=== PATIENT | male | born 1945 | race Asian ===

== ENCOUNTER 2018-11-23 06:47 | Day surgery (SDC) | payer OTHER ==
[~2018-11-23] VITALS: Ht 162.6 cm; Wt 60.9 kg
[~2018-11-23 06:47] MED LIST: ALBU8.5H3 IH; D-ME118S51 PO; MOME13HF IH; MONT10TA21 PO; OMEP20 PO; P-EP-31 PO; PRED10TA3 PO; SODIUM CHLORIDE 0.9% 1,000 ML IV ONE
[2018-11-23] MEDS ORDERED: BENZOCAINE 20% 50 MCG/SPRAY 57 GM TP ONE (06:48)
[2018-11-23] MEDS ORDERED: LIDOCAINE 2% 30 ML JELLY TP ONE (06:48)
[2018-11-23] MEDS ORDERED: ALBUTEROL SULFATE 2.5 MG/0.5 ML NEB SOLUTION NEB ONE (06:48)
[2018-11-23] MEDS ORDERED: FAMO20 PO (07:10)
[2018-11-23] MEDS ORDERED: POTA15TA11 PO (07:10)
[2018-11-23] MEDS ORDERED: MIDAZOLAM HCL 2 MG/2 ML VIAL ONE (07:38)
[2018-11-23] MEDS ORDERED: FentaNYL CITRATE-PF 100 MCG/2 ML VIAL ONE (07:38)
[2018-11-23] MEDS ORDERED: MethylPREDNISolone SOD SUCC 125 MG/2 ML VIAL IVP ONE (09:45)
[2018-11-23] MEDS ORDERED: MethylPREDNISolone SOD SUCC 125 MG/2 ML VIAL ONE (09:54)
[2018-11-23] MEDS ORDERED: OXYGEN THERAPY IH SCH (20:00)
== END 2018-11-23 11:20 | disposition home or self-care (01) ==
LOC: SURGERY 06:47
PROVIDERS: ATTEND Internal Medicine Critical Care Medicine
DX: J38.4 Edema of larynx (principal); B37.0 Candidal stomatitis; Z98.890 Other specified postprocedural states; J44.9 Chronic obstructive pulmonary disease, unspecified; Z87.891 Personal history of nicotine dependence; Z87.442 Personal history of urinary calculi
CPT/HCPCS: 31623; 31624; 71045; 87015; 87070; 87101; 87205; 87206; 87220; 88108; 88312; J2250; J2930; J3010; J7030